=== PATIENT | male | born 1955 | race Caucasian/White ===

== ENCOUNTER 2018-05-15 08:55 | Day surgery (SDC) | payer MEDICARE, SELFPAY ==
[2018-05-12 08:03] VITALS: BMI 32.3
[2018-05-15] VITALS (8 sets, daily range): BP systolic 119–162; BP diastolic 59–83; PULSE 48–74; RESP 14–20; TEMP 36.3–36.8; O2SAT 93–100; BMI 32.3
[2018-05-15] MEDS: LACTATED RINGERS 1,000 ML 42 ML IV (12:50)
[2018-05-15] MEDS: MIDAZOLAM 2 MG/2 ML VIAL 1 MG IV ×2 (13:35→13:37)
--- NOTE | 2018-05-15 13:35 | SUR.OPER ---
Beach chair with Carol/Yonathan shoulder positioner. Lower body on padded OR bed. Head in foam padded head cradle, secured with straps. Non-operative arm secured <90 degrees abduction. Pillow under knees. Safety belt at thigh. Cloth tape over blanket over lower legs.
[2018-05-15] MEDS: fentaNYL 100 MCG/2 ML INJ 50 MCG IV (13:37)
[2018-05-15] MEDS: CEFAZOLIN 2 GM/100 ML FROZ.PIGGY IV (13:50)
[2018-05-15] MEDS: SODIUM CHLORIDE IRRIG SOLUTION 3,000 ML, EPINEPHrine 1 MG IRR (14:43)
[2018-05-15] MEDS: BUPIVACAINE 0.5% W/ EPI (PF) VIAL 30 ML INJ (14:44)
--- NOTE | 2018-05-15 16:14 | P.OP_ITS ---
Operative Date/Time/Diagnoses Date of procedure: 05/15/18 Time of procedure: 14:00 Pre-op diagnosis: Massive rotator cuff tear to the left shoulder Post-op diagnosis: same Procedure & Clinicians Procedure: Arthroscopic subacromial decompression and distal clavicle excision as well as debridement Open rotator cuff repair Same procedure as scheduled: Yes Indications: Massive rotator cuff tear involving all of the supraspinatus and infraspinatus. Surgeon: [employer] Librarian: Serena Zuluaga Anesthesia Type: General and Peripheral nerve block Operative Notes Findings: Complete tear of infraspinatus and supraspinatus with retraction to the glenoid rim. No sign of any significant arthritis to the glenohumeral joint but some fraying of the labrum and almost a complete tear to the proximal biceps tendon tear. Some early signs of a high-riding humeral head but no sign of any wear of the superior aspect of the humeral head or acromial arch. No sign of any subscapularis tear. Closure Type: primary Implants & Drains: Five Arthrex anchors. Two medial and 3 lateral. Applied: implant(s) Estimated Blood Loss (mL): 10 Blood products transfused: none Procedure in detail: On date of service, Patient was met in the holding area. The operative site was signed and witnessed by the OR staff. The surgeries once again discussed with the patient and any remaining questions they had were answered fully. Patient was taken back to the operating theater and placed on the operating table in a supine position. Great care was taken to ensure that all bony prominences were properly padded. Patient was then placed into the beach chair position. The head and neck were properly positioned and secured. A timeout was performed verifying patient's name, procedure, and the operative site. The upper extremity was then prepped and draped in the normal sterile fashion. Previously, the bony anatomy and portal sites were marked out as well as injected with Marcaine with epinephrine. An 11 blade was used to make an incision in the posterior aspect of the shoulder. The camera was placed, and a diagnostic shoulder scope was performed. Findings listed above. Anterior portal was made and a shaver was brought in. Debridement of the torn aspect of the rotator cuff was performed as well as debridement of the degenerative labral tear. Patient had a almost complete proximal biceps tear and that was completed as well. The remaining stump was debrided back to the superior labrum. Next the camera was placed into the subacromial space. A lateral portal was obtained under direct visualization. A combination of the shaver and vapor wand , a debridement of the inflamed tissue as well as inflamed bursa was performed. The lateral gutter was also cleaned out. This gave us good visualization of the bursal aspect of the rotator cuff as well as the acromial arch. There was an obvious impingement lesion in the acromial arch. Using a liberator, the articular aspect as well as bursal aspect of the rotator cuff was freed up of any scarring in order to improve his overall excursion. Next we turned our attention to the subacromial decompression. Next, a mechanical rasp was then used to do a subacromial decompression. This allowed us to convert the acromion to a type I acromial. This also allowed us to shave down the bony lesion in the acromial space. The rasp was placed into the lateral portal as well as the anterior portal in order to do a complete subacromial decompression. We next turned our attention to the distal clavicle. Using the shaver in the vapor wand we were able to clean out all the soft tissue around the distal clavicle as well as into the a.c. joint. This gave us good visualization of the arthritic changes to the distal clavicle as well as good of the a.c. joint allowing us to assess our distal clavicle excision. Of the inferior osteophytes coming off the distal clavicle. Using the mechanical rasp in the anterior portal, we were able to remove the inferior osteophytes as well as do a distal clavicle excision. The camera was then placed into the anterior portal which gave us a direct visualization of the a.c. joint allowing us to assess the distal clavicle excision. We then turned our attention to the rotator cuff tear. Due to the large size, it was decided at this point to convert to a open procedure. The anterior portal was extended to the tip of the acromion. Ten blade was used to incise through skin and fascial tissue. Electrocautery used to achieve hemostasis. Metzenbaum scissors were used to bluntly dissect in line with the fibers of the deltoid given his good visualization of the humeral head. Almost the entire humeral head was uncovered from the massive rotator cuff tear. Three sets of traction sutures were placed. 2. FiberWire was used. One anterior, 1 central, 1 posterior. This allowed us to pull the rotator cuff back to its insertion point. Using the 5.5 mm bur, the rotator cuff footprint was decorticated down to good bleeding bone. We 1st started with the anterior portion of the tear involving the supraspinatus and anterior half of the infraspinatus. Speed bridge repair was performed. 2 medial anchors were placed followed by 4 suture strands passed through the supraspinatus and infraspinatus. The center traction suture was also left in place. One strand from each anchor +1 strand from the traction suture was placed into an anterior lateral anchor. This was then repeated with the posterior anchor. This provided a richard-cross pattern and reduced the supraspinatus and part of the infraspinatus down to the rotator cuff footprint. We still had the posterior half of the infraspinatus that needed to be repaired. For this, a horizontal mattress FiberTape was passed through the posterior aspect of the infraspinatus. These 2 strands as well as the 2 strands from our posterior traction suture were placed into a single lateral anchor. This helped reduce the posterior aspect of the infraspinatus back down to its rotator cuff footprint. Shoulder was taken through range of motion and there was good covering of the humeral head which once was completely uncovered. Partial [id number] repair was done between the supraspinatus and subscapularis to close down the rotator interval and help add additional fixation to the supraspinatus. The wound was copiously irrigated. Single drill hole was made into the anterior lateral tip of the chromium and part of the deltoid was repaired back through that drill hole. This was done with 2. FiberWire. 2. FiberWire was also used to repair the deltoid around the acromion and then the rest of the deltoid fascia was repaired with 0 Vicryl. Rest of the wound was closed in layered fashion. Patient's shoulder was cleaned dried dressed. He was placed into a sling extubated and taken to the PACU in stable condition. Complications: none Condition: stable Disposition: PACU Plan for aftercare: Patient will follow our postoperative protocol for massive rotator cuff tear.
[2018-05-15] MEDS: HYDROCODONE/ACET 5/325 TABLET 1 TAB PO (16:49)
== END 2018-05-15 17:15 | disposition home or self-care (01) ==
PROVIDERS: Visit Provider Orthopaedic Surgery
PROC: (CPT 29805; principal; 2018-05-15 12:00)
PROC: (CPT 23410; 2018-05-15 12:00)
DX: M75.122 Complete rotator cuff tear or rupture of left shoulder, not specified as traumatic (principal); M75.42 Impingement syndrome of left shoulder; I10 Essential (primary) hypertension; E66.9 Obesity, unspecified; Z68.32 Body mass index [BMI] 32.0-32.9, adult
CPT/HCPCS: 23410; 29826; 29823; J0171; J0330; J0690; J1100; J2250; J2704; J3010